=== PATIENT | female | born 1960 | race Caucasian/White ===

== ENCOUNTER → 2018-07-12 | Outpatient (CLI) | payer BC ==
--- NOTE | 2018-07-15 10:45 | MM ---
Reason for exam: screening (asymptomatic). Last mammogram was performed 2 years and 7 months ago. History: Patient is postmenopausal and history of other cancer. Excisional biopsy of the right breast, October 28, 2004. Physical Findings: A clinical breast exam by your physician is recommended on an annual basis and results should be correlated with mammographic findings. MG Screening Mammo w CAD Bilateral CC, MLO, and XCCL view(s) were taken. Prior study comparison: December 14, 2015, bilateral MG 3d screening mammo w/cad. October 27, 2014, bilateral MG screening mammo w CAD. The breast tissue is heterogeneously dense. This may lower the sensitivity of mammography. No suspicious abnormality. No significant changes when compared with prior studies. ASSESSMENT: Negative, BI-RAD 1 RECOMMENDATION: Routine screening mammogram of both breasts in 1 year.
== END | disposition home or self-care (01) ==
LOC: RADMAMWWP 16:54
PROVIDERS: ATTEND Obstetrics & Gynecology
DX: Z12.31 Encounter for screening mammogram for malignant neoplasm of breast (principal)
CPT/HCPCS: 77067

== ENCOUNTER → 2018-08-19 | Outpatient (CLI) | payer BC ==
--- NOTE | 2018-08-20 17:11 | US ---
EXAMINATION TYPE: US transvaginal DATE OF EXAM: 08/19/2018 COMPARISON: NONE CLINICAL HISTORY: R14.0 BLOATING. TECHNIQUE: Transvaginal (TV) Date of LMP: 2006 EXAM MEASUREMENTS: Uterus: Surgically absent cm Endometrial Stripe: Surgically absent Right Ovary: unable to visualize due to overlying bowel gas/atrophy Left Ovary: unable to visualize due to overlying bowel gas/atrophy 1. Uterus: surgically absent 2. Endometrium: surgically absent 3. Right Ovary: unable to visualize due to overlying bowel gas/atrophy 4. Left Ovary: unable to visualize due to overlying bowel gas/atrophy 5. Bilateral Adnexa: wnl 6. Posterior cul-de-sac: wnl Urinary bladder is sonolucent. The posterior wall is normal. IMPRESSION: 1. Limited pelvic ultrasound due to bowel gas and postsurgical changes.
== END | disposition home or self-care (01) ==
LOC: RADUSWWP 16:15
PROVIDERS: ATTEND Obstetrics & Gynecology
DX: R14.0 Abdominal distension (gaseous) (principal); Z78.0 Asymptomatic menopausal state
CPT/HCPCS: 76830

== ENCOUNTER 2019-06-22 16:08 | Emergency (ER) | payer BC ==
[2019-06-22 16:35] VITALS: BP 120/75; PULSE 68; RESP 16; TEMP 97.9
--- NOTE | 2019-06-22 17:25 | XR ---
EXAMINATION TYPE: XR foot complete RT DATE OF EXAM: 06/22/2019 COMPARISON: NONE HISTORY: Foot pain TECHNIQUE: 3 views FINDINGS: Metatarsals are intact. There is some surgery with osteotomy of the first and fifth metatar taylor heads. There is previous surgery on the second toe. There is osteoarthritic change at the second MP joint. I see no acute fracture nor dislocation. IMPRESSION: Previous surgery. No fracture seen.
--- NOTE | 2019-06-22 17:43 | XR ---
EXAMINATION TYPE: XR ankle complete RT DATE OF EXAM: 06/22/2019 COMPARISON: NONE HISTORY: Pain and swelling TECHNIQUE: 3 views FINDINGS: Ankle mortise is anatomic. I see no fracture nor dislocation. There is mild soft tissue swe lling around the lateral malleolus. IMPRESSION: Mild soft tissue swelling. No fracture seen.
--- NOTE | 2019-06-22 18:11 | ED ---
General Adult HPI - General Chief complaint: Extremity Injury, Upper Stated complaint: RT FOOT PAIN Time Seen by Provider: 06/22/19 17:13 Source: patient, RN notes reviewed Mode of arrival: ambulatory Limitations: no limitations - History of Present Illness Initial comments: 59-year-old female with a past medical history of thyroid disorder presents for right foot injury. Patient states that 4 days ago she was carrying some grocery bags into her house when she tripped on the curb and injured the lateral aspect of her right foot. States that it has been painful since that time. States it is painful to walk on however she has been able to do so. States she wants to make sure it is not broken.Patient has no other complaints at this time includi ng shortness of breath, chest pain, abdominal pain, nausea or vomiting, headache, or visual changes. - Related Data Allergies Allergy/AdvReac Type Severity Reaction Status Date / Time No Known Allergies Allergy Verified 06/22/19 16:35 Review of Systems ROS Statement: Those systems with pertinent positive or pertinent negative responses have been documented in the HPI. ROS Other: All systems not noted in ROS Statement are negative. Past Medical History Past Medical History: Thyroid Disorder History of Any Multi-Drug Resistant Organisms: None Reported Past Surgical History: Hysterectomy Additional Past Surgical History / Comment(s): Partial thyroidectomy Past Psychological History: No Psychological Hx Reported Smoking Status: Current some day smoker Past Alcohol Use History: None Reported Past Drug Use History: None Reported General Exam Limitations: no limitations General appearance: alert, in no apparent distress Head exam: Present: atraumatic, normocephalic, normal inspection Eye exam: Present: normal appearance, PERRL, EOMI. Absent: scleral icterus, conjunctival injection, periorbital swelling ENT exam: Present: normal exam, mucous membranes moist Neck exam: Present: normal inspection. Absent: tenderness, meningismus, lymphadenopathy Respiratory exam: Present: normal lung sounds bilaterally. Absent: respiratory distress, wheezes, rales, rhonchi, stridor Cardiovascular Exam: Present: regular rate, normal rhythm, normal heart sounds. Absent: systolic murmur, diastolic murmur, rubs, gallop, clicks Extremities exam: Present: full ROM (Full range of motion of all digits in the right foot as well as the right ankle.), tenderness (Tenderness noted to the generalized proximal lateral right foot. No navicular tenderness. No tenderness to the ankle.), normal capillary refill (Capillary refill less than 2 seconds, DP pulse 2+ in the right lower extremities.), other (minimal edema to the lateral aspect of the righ tfoot and ankle). Absent: pedal edema, calf tenderness Neurological exam: Present: alert Course Vital Signs 06/22/19 16:31 Temperature 97.9 F Pulse Rate 68 Respiratory 16 Rate Blood Pressure 120/75 O2 Sat by Pulse 100 Oximetry Medical Decision Making - Medical Decision Making 59-year-old female presents for right foot pain. Patient injured this 4 days ago. Patient has been ambulatory on it since that time. DP pulse 2+. Sensation intact in the right lower extremity. Patient has mild edema noted to the lateral aspect of the right foot with generalized lateral right foot tenderness in the proximal area. X-ray of the ankle is negative for fracture. Mild soft tissue swelling. No pain over the lateral malleolus. X-ray of the right foot shows no fracture. Recommended we splint the foot given lateral foot tenderness however patient refuses stating she needs to go to work and cannot have this splinted. I recommended follow-up in 7-10 days for repeat x-rays. I recommended return if she has any worsening symptoms. Disposition Clinical Impression: Right foot injury Disposition: HOME SELF-CARE Condition: Good Instructions (If sedation given, give patient instructions): Foot Sprain (ED) Additional Instructions: Please take Motrin and Tylenol for pain. Please rest ice and elevate the area. Follow-up with orthopedics in 1-2 days. Return to the emergency department if you have any worsening symptoms. Is patient prescribed a controlled substance at d/c from ED?: No Referrals: Vamsi Gaviria DO [Primary Care Provider] - 1-2 days Kodi Mercer DO [Doctor of Osteopathic Medicine] - 1-2 days Time of Disposition: 18:38
== END 2019-06-22 18:59 | disposition home or self-care (01) ==
LOC: EC 16:08
DX: S99.921A Unspecified injury of right foot, initial encounter (principal); F17.200 Nicotine dependence, unspecified, uncomplicated; W01.0XXA Fall on same level from slipping, tripping and stumbling without subsequent striking against object, initial encounter; Y93.89 Activity, other specified; Y92.009 Unspecified place in unspecified non-institutional (private) residence as the place of occurrence of the external cause; Z53.29 Procedure and treatment not carried out because of patient's decision for other reasons
CPT/HCPCS: 99283

== ENCOUNTER → 2019-09-10 | Outpatient (CLI) | payer BC ==
--- NOTE | 2019-09-10 09:59 | US ---
EXAMINATION TYPE: US abdomen complete DATE OF EXAM: 09/10/2019 COMPARISON: NONE CLINICAL HISTORY: R1084 GENERALIZED ABD PAIN. abd pain for 1 month EXAM MEASUREMENTS: Liver Length: 15.5 cm Gallbladder Wall: 0.2 cm CBD: 0.4 cm Spleen: 8.5 cm Right Kidney: 9.6 x 5.0 x 5.7 cm Left Kidney: 9.6 x 4.7 x 5.8 cm Pancreas: wnl Liver: 1.3cm posterior right lobe cyst seen Gallbladder: wnl Evidence for sonographic Miranda's sign: no CBD: wnl Spleen: wnl Right Kidney: wnl Left Kidney: wnl Upper IVC: wnl Abd Aorta: wnl The visualized liver is homogenous. Inferiorly technologist cortes roughly 1.0 cm simple appearing thi n-walled cyst towards the right hepatic dome The intrahepatic portion of the IVC and visualized abdom inal aorta are within normal limits. There is no evidence of cholelithiasis. Common bile duct is un remarkable. The visualized portions of the pancreas are homogenous. The spleen is unremarkable. Ki dneys are symmetric and free of hydronephrosis. No renal lesions are seen. IMPRESSION: No acute findings are evident.
--- NOTE | 2019-09-10 13:33 | CT ---
EXAMINATION TYPE: CT brain w con DATE OF EXAM: 09/10/2019 COMPARISON: None INDICATION: Dizziness, giddiness, chronic sinusitis DLP: 1041.10 mGycm, Automated exposure control for dose reduction was used. CONTRAST: None CT of the brain is performed utilizing 3 mm thick sections through the posterior fossa and 3 mm thick sections through the remaining calvarium. Study is performed within 24 hours of arrival to the hosp ital. No abnormal hyperdensity is present to suggest an acute intracranial hemorrhage. No mass lesion is evident. No acute infarcts are evident. Ventricles and sulci are appropriate for the patient age. Paranasal sinuses and mastoid air cells within the xyrph-fw-owte are clear. No abnormal enhancement is evident. IMPRESSIONS: 1. Normal postcontrast CT Brain
--- NOTE | 2019-09-10 13:35 | CT ---
EXAMINATION TYPE: CT sinus wo con DATE OF EXAM: 09/10/2019 COMPARISON: 04/20/2014 HISTORY: Dizziness, giddiness, chronic sinusitis CT DLP: 563.0 mGycm CONTRAST: None The paranasal sinuses are examined in the axial plane at 2 mm thick sections. Reconstructed images i n the coronal plane were obtained. There is dental amalgam scatter artifact. There is been prior uncinectomy. 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 Partial ethmoidectomies been perfo rmed. Small retention cyst is within the inferior inferior right maxillary sinus recess. Some mild mucosal thickening is within the posterior right ethmoid region. Mild mucosal thickenings within left postsu rgical ethmoid region. The sphenoid sinuses are clear. The frontal sinuses are clear. The septum is evaluated. There is septal deviation to the right. The ostiomeatal units are patent. IMPRESSIONS: 1. Post uncinate ectomy and ethmoidectomy postsurgical changes. 2. Mild mucosal thickening within postsurgical ethmoid air cells and within the posterior medial righ t maxillary sinus.
== END | disposition home or self-care (01) ==
LOC: RADUSWWP 08:30
PROVIDERS: ATTEND Family Medicine
DX: R51 Headache (principal); R42 Dizziness and giddiness; E03.9 Hypothyroidism, unspecified; J34.89 Other specified disorders of nose and nasal sinuses; R10.84 Generalized abdominal pain; J32.8 Other chronic sinusitis; Z98.890 Other specified postprocedural states
CPT/HCPCS: 76700; 70460; 70486; Q9967

== ENCOUNTER → 2019-10-16 | Outpatient (CLI) | payer BC ==
--- NOTE | 2019-10-17 11:20 | MM ---
Reason for exam: screening (asymptomatic). Last mammogram was performed 1 year and 3 months ago. History: Patient is postmenopausal and history of other cancer. Excisional biopsy of the right breast, October 28, 2004. Physical Findings: A clinical breast exam by your physician is recommended on an annual basis and results should be correlated with mammographic findings. MG 3D Screening Mammo W/Cad Bilateral CC and MLO view(s) were taken. Prior study comparison: July 12, 2018, bilateral MG screening mammo w CAD. December 14, 2015, bilateral MG 3d screening mammo w/cad. The breast tissue is extremely dense which could obscure a lesion on mammography. Finding: There is a stable architectural distortion in the upper outer quadrant, posterior position of the right breast consistent with known excisional changes. There is no discrete abnormality. ASSESSMENT: Benign, BI-RAD 2 RECOMMENDATION: Routine screening mammogram of both breasts in 1 year.
== END | disposition home or self-care (01) ==
LOC: RADMAMWWP 09:21
PROVIDERS: ATTEND Clinical Nurse Specialist Women's Health
DX: Z12.31 Encounter for screening mammogram for malignant neoplasm of breast (principal)
CPT/HCPCS: 77063; 77067

== ENCOUNTER → 2022-03-03 | Outpatient (CLI) | payer BC ==
--- NOTE | 2022-03-03 16:25 | XR ---
EXAMINATION TYPE: XR elbow complete LT DATE OF EXAM: 03/03/2022 COMPARISON: None HISTORY: Pain TECHNIQUE: 3 view left elbow FINDINGS: Degenerative joint changes present at the radial ulnar junction. The radius aligns normally with the humerus. Some joint space narrowing at the radial humeral joint space may be present. Radia l head spurring is present. No acute fractures are evident. The anterior fat pad is normal. No elevation of posterior fat pad is evident. Follow up exams can be performed as clinically indicated. IMPRESSION: 1. No acute osseous abnormality.
--- NOTE | 2022-03-03 16:30 | XR ---
EXAMINATION TYPE: XR chest 2V DATE OF EXAM: 03/03/2022 COMPARISON: None INDICATION: Cough TECHNIQUE: Frontal and lateral views of the chest are obtained. FINDINGS: The heart size is normal. The pulmonary vasculature is normal. The lungs are clear. IMPRESSION: 1. No acute pulmonary process.
== END | disposition home or self-care (01) ==
LOC: RADXRYALE 11:02
PROVIDERS: ATTEND Family Medicine
DX: M25.522 Pain in left elbow (principal); R05.3 Chronic cough
CPT/HCPCS: 71046

== ENCOUNTER → 2022-03-29 | Outpatient (CLI) | payer BC ==
--- NOTE | 2022-03-29 14:10 | XR ---
EXAMINATION TYPE: XR knee complete RT DATE OF EXAM: 03/29/2022 CLINICAL HISTORY: Pain after recent fall injury TECHNIQUE: Three views of the right knee are obtained. COMPARISON: None. FINDINGS: There is no acute fracture/dislocation evident in the right knee. Mild to moderate tricomp artment joint space loss without significant spurring. Small suprapatellar joint effusion. Overlying clothing material distal femoral level IMPRESSION: There is no acute fracture or dislocation in the right knee.
--- NOTE | 2022-03-29 14:40 | XR ---
EXAMINATION TYPE: XR toes RT DATE OF EXAM: 03/29/2022 COMPARISON: Right foot x-ray June 22, 2019 HISTORY: Pain after recent fall injury. TECHNIQUE: 3 views right second toe FINDINGS: Metallic surgical change to the second middle phalanx redemonstrated. Interval arthrodesis or ossific fusion at the second PIP joint. No acute displaced fracture in the second toe. Some flatte claudia of the second metatarsal head is seen in the interval. Postsurgical change to the distal first m etatarsal redemonstrated IMPRESSION: As above.
== END | disposition home or self-care (01) ==
LOC: RADXRYALE 13:32
PROVIDERS: ATTEND Physician Assistant
DX: M25.561 Pain in right knee (principal); M79.674 Pain in right toe(s)

== ENCOUNTER → 2022-10-05 | Outpatient (CLI) | payer BC ==
--- NOTE | 2022-10-07 16:29 | MM ---
Reason for Exam: Screening (asymptomatic). Last mammogram was performed 3 year(s) and 0 month(s) ago. Patient History: Menarche at age 17. First Full-Term at age 21. Hysterectomy at age 47. Postmenopausal. Other cancer. 10/28/2004, Excisional Biopsy on the Right side. Risk Values: Linda 5 year model risk: 1.4%. NCI Lifetime model risk: 6.9%. Prior Study Comparison: 12/14/2015 Bilateral Screening Mammogram, [facility]. 07/12/2018 Bilateral Screening Mammogram, [facility]. 10/16/2019 Bilateral Screening Mammogram, [facility]. Tissue Density: The breast tissue is heterogeneously dense. This may lower the sensitivity of mammography. Findings: Analyzed By CAD. Post excisional changes on the right. Subareolar asymmetric density left MLO view and also superior posterior left MLO view did not persist on 3-D images. Findings compatible with superimposition shadow. There is no suspicious group of microcalcifications or new suspicious mass in either breast. Overall Assessment: Benign, BI-RAD 2 Management: Screening Mammogram of both breasts in 1 year. 1. Patient should continue monthly self breast exams. 2. A clinical breast exam by your physician is recommended on an annual basis. 3. This exam should not preclude additional follow-up of suspicious palpable abnormalities. Electronically signed and approved by: Neil Thapa M.D. Radiologist
== END | disposition home or self-care (01) ==
LOC: RADMAMWWP 15:10
PROVIDERS: ATTEND Family Medicine
DX: Z12.31 Encounter for screening mammogram for malignant neoplasm of breast (principal); Z78.0 Asymptomatic menopausal state
CPT/HCPCS: 77063; 77067

== ENCOUNTER → 2025-03-05 | Outpatient (CLI) | payer BC ==
--- NOTE | 2025-03-05 16:17 | MM ---
Reason for Exam: Screening (asymptomatic). Last mammogram was performed 2 year(s) and 5 month(s) ago. Patient History: Menarche at age 17. First Full-Term at age 21. Hysterectomy at age 47. Postmenopausal. Other cancer. 10/28/2004, Excisional Biopsy on the Right side. Risk Values: Linda 5 year model risk: 1.5%. NCI Lifetime model risk: 6.5%. Prior Study Comparison: 07/12/2018 Bilateral Screening Mammogram, [facility]. 10/16/2019 Bilateral Screening Mammogram, [facility]. 10/05/2022 Bilateral MG 3D screening mammo w/cad, [facility]. Tissue Density: The breasts are heterogeneously dense, which may obscure small masses. Findings: Analyzed By CAD. There is no suspicious group of microcalcifications or new suspicious mass in either breast. Overall Assessment: Benign, BI-RAD 2 Management: Screening Mammogram of both breasts in 1 year. . Patient should continue monthly self-breast exams. A clinical breast exam by your physician is recommended on an annual basis. This exam should not preclude additional follow-up of suspicious palpable abnormalities. Note on Linda scores and lifetime risk: 1. A Linda score greater than 3% is considered moderate risk. If this is the case, consider specialist referral to assess eligibility for a risk reducing agent. 2. If overall lifetime risk for the development of breast cancer is 20% or higher, the patient may qualify for future screening with alternating mammogram and breast MRI. [facility], , 03/05/2025 3:31 PM. Electronically signed and approved by: Ricardo Kerns M.D. Radiologis
--- NOTE | 2025-03-06 07:51 | BD ---
EXAMINATION TYPE: Axial Bone Density DATE OF EXAM: 03/05/2025 CLINICAL HISTORY: 64 years old Female. ICD-10 CODE: Z78.0 POSTMENOPAUSAL , Additional History: Height: 68 Weight: 208 FRAX RISK QUESTIONS: Family History (Parent hip fracture): no History of Fracture in Adulthood: no Secondary Osteoporosis: no RISK FACTORS HISTORY OF: Surgery to Spine/Hip(right/left)/Wrist (right/left): no MEDICATIONS: Thyroid Medications: yes Which medication: Synthroid How Lon years Osteoporosis Medications: no EXAM MEASUREMENTS: Bone mineral densitometry was performed using the [employer] [facility]. Bone mineral density as measured about the Lumbar spine is: ----- L1-L4(G/cm2): 1.121 T Score Values are as follows: ----- L1: -0.3 ----- L2: -1.0 ----- L3: -0.3 ----- L4: -0.5 ----- L1-L4: -0.5 Z Score Values are as follows: ----- L1: 0.3 ----- L2: -0.5 ----- L3: 0.2 ----- L4: 0.0 ----- L1-L4: 0.0 Bone mineral density baseline Bone mineral density about the R hip (g/cm2): 1.080 Bone mineral density about the L hip (g/cm2): 1.065 T Score values are as follows: -----R Neck: 0.7 -----L Neck: 0.4 -----R Total: 0.6 -----L Total: 0.5 Z Score values are as follows: -----R Neck: 1.4 -----L Neck: 1.2 -----R Total: 1.0 -----L Total: 0.9 Bone mineral density baseline FRAX%s: The graph provided illustrates a 5.9% chance for a major osteoporotic fx and a 0.1% chance fo r the hips probability for fx in 10 years time. IMPRESSION: Normal (Values between +1 and -1 indicate normal bone mass). Consider repeating this study in 5 year s or sooner if there is some new clinical indication. NOTE: T-SCORE=SD OF THE YOUNG ADULT MEAN. [facility], , 03/06/2025 7:48 AM
== END | disposition home or self-care (01) ==
LOC: RADBDWWP 15:07
PROVIDERS: ATTEND Obstetrics & Gynecology
DX: Z12.31 Encounter for screening mammogram for malignant neoplasm of breast (principal); R92.333 Mammographic heterogeneous density, bilateral breasts; Z78.0 Asymptomatic menopausal state
CPT/HCPCS: 77063; 77067; 77080

== ENCOUNTER → 2025-03-14 | Outpatient (CLI) | payer BC ==
--- NOTE | 2025-03-16 12:50 | MR ---
EXAMINATION TYPE: MR shoulder RT wo con DATE OF EXAM: 03/14/2025 6:16 PM COMPARISON: No radiographic correlation available. CLINICAL INDICATION: Female, 64 years old with history of M75.100 UNSP ROT-CUFF TEAR/RUPTR RT S, Righ t shoulder pain, limited range of motion, and weakness for over 6 months. TECHNIQUE: Multiplanar, multisequence imaging of the right shoulder is performed without contrast. FINDINGS: There is heterogeneity and irregularity of the intracapsular portion of the long head biceps tendon t o the junction of the extracapsular portion. Diffuse heterogeneity and some thickening of the subscapularis tendon. The majority of the subscapula ris tendon remains intact. Mild degenerative joint space narrowing at the AC joint but with prominent capsular edema and subchon dral cystic change. No significant mass effect onto the underlying cuff. Mild effusion in the subacromial/subdeltoid bursa. Extensive bursal sided fraying of both supraspinatus and infraspinatus tendons. There is a shallow bursal sided tear of the posterior supraspinatus tendon measuring 7 x 7 mm, padron l image 13 and sagittal image 26. 5 mm intrasubstance tear at the footprint of the mid supraspinatus tendon. There is an intrasubstance tear involving the infraspinatus tendon along the myotendinous junction me asuring 1.6 cm long and 1.4 cm AP. No high-grade partial or full-thickness rotator cuff tear is seen. No significant rotator cuff muscle atrophy is identified. Prominent reactive subchondral cystic change at both greater and lesser tuberosities. Mild diffuse thinning of articular cartilage in the glenohumeral joint. Physiologic joint fluid. No d iscrete labral tear or paralabral cyst given arthrographic technique. No Hill-Sachs deformity or os acromiale. Some patchy red marrow hyperplasia is present and can be seen with anemia, obesity, smoking, and desktop publishing operator douglas disease. IMPRESSION: 1. Diffuse rotator cuff tendinosis with bursal sided fraying throughout and mild bursal effusion. 2. Small 5 mm intrasubstance tear at the footprint of the mid supraspinatus tendon, shallow 7 x 7 mm bursal sided tear mid supraspinatus tendon, and an intrasubstance tear extending along the myotendino us junction of the infraspinatus tendon measuring 1.6 x 1.4 cm. No high-grade partial or full-thickne ss rotator cuff tear is seen. 3. Partial tear involving the intracapsular portion of the long head biceps tendon extending to the b icipital groove. 4. Some edema at the AC joint could reflect an acute exacerbation of underlying mild OA. 5. Mild glenohumeral joint OA. [facility], Workstation: [email or web address], 03/16/2025 12:48 PM
== END | disposition home or self-care (01) ==
LOC: RADMRIMAIN 18:00
PROVIDERS: ATTEND Orthopaedic Surgery
DX: S46.811A Strain of other muscles, fascia and tendons at shoulder and upper arm level, right arm, initial encounter (principal); M67.813 Other specified disorders of tendon, right shoulder; M19.011 Primary osteoarthritis, right shoulder; M75.101 Unspecified rotator cuff tear or rupture of right shoulder, not specified as traumatic; X58.XXXA Exposure to other specified factors, initial encounter